=== PATIENT | male | born 1955 | race Two or more races ===

== ENCOUNTER → 2023-06-07 | Outpatient (CLI) | payer OTHER ==
[2023-06-07 10:09] LABS: Urine WBC None Seen /hpf (0 - 3)
[2023-06-07 10:22] LABS: Basophils # (auto) 0 10 ^3/uL (0-0.2); Basophils % (auto) 0.7 % (0.0-2.0); Eosinophils # (auto) 0.3 10 ^3/uL (0-0.8); Eosinophils % (auto) 4.6 % (0.0-7.0); Hematocrit 47.8 % (41.0-53.0); Hemoglobin 15.9 g/dL (13.5-17.5); Lymphocytes # (auto) 2.1 10 ^3/uL (0.4-5.4); Lymphocytes % (auto) 38.1 % (10.0-50.0); Mean Corpuscular Hemoglobin 31.7 pg (28.0-32.0); Mean Corpuscular Hgb Conc. 33.3 g/dL (32.0-36.0); Mean Corpuscular Volume 95.3 fL (80.0-100.0); Monocytes # (auto) 0.5 10 ^3/uL (0-1.3); Monocytes % (auto) 8.6 % (0.0-12.0); Neutrophils # (auto) 2.6 10 ^3/uL (1.6-8.6); Nucleated Red Blood Cells % 0.1 %; Red Blood Cells 5.01 10^6/uL (4.5-5.90); Red Cell Distribution Width 13.6 % (11.8-14.3); White Blood Cell 5.4 10^3/uL (4.4-10.8)
[2023-06-07 10:43] LABS: Prostate Specific Antigen 2.29 ng/mL (0.0-4.0)
[2023-06-07 10:47] LABS: Free T4 (Free Thyroxine) 1.12 ng/dL (0.89-1.76)
[2023-06-07 10:48] LABS: Alanine Aminotransferase 15 U/L (7-40); Albumin 4.7 g/dL (3.2-4.8); Alkaline Phosphatase 83 U/L (46-116); Anion Gap 6 (5-15); Aspartate Aminotransferase 16 U/L (13-40); BUN/Creatinine Ratio 13.7 (10.0-20.0); Blood Urea Nitrogen 14 mg/dL (9-23); Carbon Dioxide 29 mmol/L (20-30); Chloride 105 mmol/L (98-107); Cholesterol 176 mg/dL (< 200); Glucose 95 mg/dL (74-106); HDL Cholesterol 69 mg/dL (40-59); LDL Cholesterol 95 mg/dL (< 100); Potassium 4.6 mmol/L (3.5-5.1); Sodium 140 mmol/L (136-145); Triglycerides 72 mg/dL (< 150)
[2023-06-07 10:49] LABS: Bilirubin, Total 0.7 mg/dL (0.2-1.0); Total Protein 7.1 g/dL (5.7-8.2)
[2023-06-07 11:49] LABS: Urine Bacteria NONE SEEN /hpf (None Seen); Urine Blood Negative /uL (Negative); Urine Clarity Clear (Clear); Urine Protein, UAD Negative (Negative); Urine Specific Gravity 1.008 (1.001-1.035); Urine Urobilinogen Normal (Negative); Urine pH 6.5 (5.0-8.0)
[2023-06-07 11:50] LABS: Urine Color Yellow (Yellow)
== END | disposition home or self-care (01) ==
LOC: LAB 09:55
DX: Z00.00 Encounter for general adult medical examination without abnormal findings (principal); I10 Essential (primary) hypertension
CPT/HCPCS: 36415; 80053; 80061; 81001; 84153; 84439; 84443; 85025

== ENCOUNTER 2024-04-22 07:18 | Day surgery (SDC) | payer OTHER ==
[2024-04-17 09:39] LABS: Basophils # (auto) 0.1 10 ^3/uL (0-0.2); Basophils % (auto) 1.3 % (0.0-2.0); Eosinophils # (auto) 0.1 10 ^3/uL (0-0.8); Eosinophils % (auto) 2.7 % (0.0-7.0); Hematocrit 48.2 % (41.0-53.0); Hemoglobin 16.2 g/dL (13.5-17.5); Lymphocytes # (auto) 1.9 10 ^3/uL (0.4-5.4); Lymphocytes % (auto) 37.6 % (10.0-50.0); Mean Corpuscular Hemoglobin 32.5 pg (28.0-32.0); Mean Corpuscular Hgb Conc. 33.5 g/dL (32.0-36.0); Mean Corpuscular Volume 96.9 fL (80.0-100.0); Monocytes # (auto) 0.4 10 ^3/uL (0-1.3); Neutrophils # (auto) 2.6 10 ^3/uL (1.6-8.6); Neutrophils % (auto) 51.4 % (37.0-80.0); Platelet Count (auto) 229 10^3/uL (140-450); Red Blood Cells 4.98 10^6/uL (4.5-5.90); Red Cell Distribution Width 13.5 % (11.8-14.3); White Blood Cell 5.1 10^3/uL (4.4-10.8)
[2024-04-17 09:56] LABS: INR 0.97 (0.9-1.15); Partial Thromboplastin Time 26.9 SEC (24.5-34.5); Prothrombin Time 10.3 sec (9.3-11.8)
[2024-04-17 10:15] LABS: Alanine Aminotransferase 17 U/L (7-40); Alkaline Phosphatase 81 U/L (46-116); Anion Gap 7 (5-15); BUN/Creatinine Ratio 14.7 (10.0-20.0); Blood Urea Nitrogen 15 mg/dL (9-23); Carbon Dioxide 28 mmol/L (20-31); Chloride 105 mmol/L (98-107); Glucose 94 mg/dL (74-106); Potassium 4.5 mmol/L (3.5-5.1); Sodium 140 mmol/L (136-145)
[2024-04-17 10:17] LABS: Aspartate Aminotransferase 17 U/L (13-40)
[2024-04-17 10:18] LABS: Albumin 4.8 g/dL (3.2-4.8); Bilirubin, Total 0.7 mg/dL (0.2-1.0); Calcium 10.4 mg/dL (8.7-10.4)
[~2024-04-22] VITALS: Ht 172.7 cm; Wt 65.8 kg
[2024-04-22] MEDS: MIDAZOLAM HCL 5 MG/ML-1ML VIAL ONE (08:50)
[2024-04-22] MEDS: fentaNYL CITRATE 100 MCG/2 ML VL ONE (08:50)
[2024-04-22 09:09] VITALS: PULSE 66; RESP 11; TEMP 98.7; O2SAT 98
[2024-04-22 09:47] VITALS: BP 123/78; PULSE 62; RESP 17; O2SAT 95
[2024-04-22] MEDS ORDERED: NALOXONE HCL 0.4 MG/ML VIAL ONE (11:00)
[2024-04-22] MEDS ORDERED: SODIUM CHLORIDE LOCK 10 ML ONE (11:00)
[2024-04-22] MEDS ORDERED: FLUMAZENIL 0.1 MG/ML INJ 10ML MDV IV ONE (11:00)
--- NOTE | 2024-05-06 08:26 | DVHNC2 ---
Procedure - DATE OF PROCEDURE: APRIL 22, 2024 SURGEON: CATHY LAU MD REFERRING PROVIDER: Claudy CAZARES PROCEDURE PERFORMED: 1. COLONOSCOPY WITH COLD SNARE POLYPECTOMY WITH MODERATE SEDATION PRE-PROCEDURE DIAGNOSIS: 1. COLON CANCER SCREENING POSTPROCEDURE DIAGNOSIS: 1. TRANSVERSE COLON POLYP 2. 2+ INTERNAL HEMORRHOIDS 3. SMALL EXTERNAL HEMORRHOIDS INDICATIONS FOR PROCEDURE: The patient is a 68-year-old male who presents for outpatient colonoscopy for screening. He has of average risk DETAILS OF THE PROCEDURE: Informed consent was obtained after risks, benefits, and alternatives, were discussed at length with the patient. The patient gave consent to the procedure as well as the medication used for sedation. The patient was placed in the left lateral decubitus position. Digital rectal exam showed internal and external hemorrhoids. An Olympus variable torsion pediatric colonoscope was inserted into the rectum and advanced to the cecum. The cecum was identified by the ileocecal valve and the appendiceal orifice. The scope was then withdrawn. The prep was good with little amounts of liquid stool. There were no large polyps, masses, strictures, diverticula, or arteriovenous malformation seen. The patient had one transverse colon polyp removed completely with cold snare polypectomy. More than 6 minutes of withdrawal time was noted. Retroflexion showed 2+ internal hemorrhoids. The patient tolerated the procedure well. BRISTOL BOWEL PREP SCORE: 9 COLONOSCOPY START TIME: 8:53 A.M. CECUM TIME: 8:59 A.M. COLONOSCOPY END TIME: 9:06 A.M. IMPRESSION: 1. ONE SMALL COLON POLYP 2. 2+ INTERNAL AND SMALL EXTERNAL HEMORRHOIDS RECOMMENDATIONS: 1. FOLLOW-UP WITH PROCEDURE AND PATHOLOGY RESULTS 2. REPEAT COLONOSCOPY IN 5 YEARS PENDING PATHOLOGY UNLESS OTHERWISE INDICATED BY SYMPTOMS OR FAMILY HISTORY OR LABORATORY FINDINGS 3. HIGH-FIBER DIET 4. FOLLOW UP WITH PRIMARY CARE PHYSICIAN 5. MEDICAL MANAGEMENT AND/OR HEMORRHOID BANDING FOR INTERNAL HEMORRHOIDS I WOULD LIKE TO THANK DR[facility] CLAUDY HER [facility] FOR THIS REFERRAL CATHY LAU MD May 06, 2024 08:26
== END 2024-04-22 10:05 | disposition home or self-care (01) ==
LOC: GI 07:18
PROVIDERS: ATTEND Specialist
DX: Z12.11 Encounter for screening for malignant neoplasm of colon (principal); D12.3 Benign neoplasm of transverse colon; K64.1 Second degree hemorrhoids; K64.4 Residual hemorrhoidal skin tags
CPT/HCPCS: 36415; 45385; 80053; 85025; 85610; 85730; 88305; J2250; J3010; 99152

== ENCOUNTER → 2024-05-10 | Day surgery (SDC) | payer OTHER, MEDICAID ==
[2024-05-08 11:12] LABS: Urine Bacteria None Seen /hpf (None Seen)
[2024-05-08 11:48] LABS: Basophils # (auto) 0 10 ^3/uL (0-0.2); Basophils % (auto) 0.6 % (0.0-2.0); Eosinophils # (auto) 0.1 10 ^3/uL (0-0.8); Hematocrit 48.9 % (41.0-53.0); Hemoglobin 16.5 g/dL (13.5-17.5); Lymphocytes # (auto) 1.5 10 ^3/uL (0.4-5.4); Lymphocytes % (auto) 31.9 % (10.0-50.0); Mean Corpuscular Hemoglobin 32.5 pg (28.0-32.0); Mean Corpuscular Hgb Conc. 33.8 g/dL (32.0-36.0); Mean Corpuscular Volume 96.2 fL (80.0-100.0); Monocytes # (auto) 0.3 10 ^3/uL (0-1.3); Monocytes % (auto) 6.6 % (0.0-12.0); Neutrophils # (auto) 2.7 10 ^3/uL (1.6-8.6); Neutrophils % (auto) 58.9 % (37.0-80.0); Platelet Count (auto) 235 10^3/uL (140-450); Red Blood Cells 5.08 10^6/uL (4.5-5.90); Red Cell Distribution Width 13.2 % (11.8-14.3); White Blood Cell 4.6 10^3/uL (4.4-10.8)
[2024-05-08 12:09] LABS: INR 0.93 (0.9-1.15); Partial Thromboplastin Time 27.1 SEC (24.5-34.5); Prothrombin Time 9.9 sec (9.3-11.8)
[2024-05-08 12:14] LABS: Urine Blood Negative /uL (Negative); Urine Clarity Clear (Clear); Urine Color Light-Yellow (Yellow); Urine Protein, UAD Negative (Negative); Urine Specific Gravity 1.011 (1.001-1.035); Urine Squamous Epithelial Cell None Seen /hpf (<5); Urine Urobilinogen Normal (Negative); Urine pH 6.5 (5.0-9.0)
[2024-05-08 12:21] LABS: Alanine Aminotransferase 17 U/L (7-40); Alkaline Phosphatase 84 U/L (46-116); Anion Gap 6 (5-15); Aspartate Aminotransferase 14 U/L (13-40); BUN/Creatinine Ratio 18.2 (10.0-20.0); Bilirubin, Total 0.5 mg/dL (0.2-1.0); Blood Urea Nitrogen 18 mg/dL (9-23); Calcium 10.4 mg/dL (8.7-10.4); Carbon Dioxide 29 mmol/L (20-31); Chloride 105 mmol/L (98-107); Glucose 96 mg/dL (74-106); Potassium 4.5 mmol/L (3.5-5.1); Sodium 140 mmol/L (136-145); Total Protein 7.5 g/dL (5.7-8.2)
[2024-05-08 12:26] LABS: Albumin 5.1 g/dL (3.2-4.8)
[~2024-05-10] VITALS: Ht 172.7 cm; Wt 63.5 kg
[~2024-05-10] MED LIST: DexAMETHasone SOD PHOS 10MG/1ML VIAL INJ ONE; KETOROLAC TROMETH 30 MG/ML 1ML VIAL ONE; LIDOCAINE W/ EPINEPHRINE 1% 20ML VIAL ONE; MEPERIDINE HCL (25 MG/ML) 1ML VIAL ONE; MIDAZOLAM HCL 2MG/2ML 2ml VIAL (1mg/ml) IV PRN; MIDAZOLAM HCL 2MG/2ML 2ml VIAL (1mg/ml) ONE; MORPHINE SULFATE 4 MG/ML SYR/VIAL IV PRN; ONDANSETRON HCL 4 MG/2 ML VIAL IV ONE; ONDANSETRON HCL 4 MG/2 ML VIAL ONE; PHENYLEPHRINE HCL 10 MG/ML VL IV ONE; ceFAZolin 2 GM/D5W100ml 100 ML IV ONE; ePHEDrine SULFATE 50 MG/ML AMP IV PRN; fentaNYL CITRATE 100 MCG/2 ML VL ONE; hydrALAZINE HCL 20 MG/ML VL IV PRN
[2024-05-10] MEDS: BUPIVACAINE 0.5% MPF INJ 30ML SDV IJ ONE (08:49)
--- NOTE | 2024-05-10 09:19 | DVHOP ---
DATE OF SURGERY: 05/10/2024 PREOPERATIVE DIAGNOSIS: Right inguinal hernia. POSTOPERATIVE DIAGNOSIS: Right inguinal hernia. SURGEON: Shivam Oreilly MD PICKLER HELPER: Azeem Nam. ANESTHESIA: General. ANESTHESIOLOGIST: Dr. Pyle. PROCEDURE: Repair of right inguinal hernia. DESCRIPTION OF PROCEDURE: Under adequate anesthesia, with the patient's skin prepped and draped and infiltrated with 0.25% Marcaine with 0.5% Xylocaine mixture an incision was made over the visible palpable bulge of the right groin. Incision was deepened with electrocautery and the adipose tissue divided. The Anitha's fascia divided down onto the fibers of the external oblique aponeurosis. The ilioinguinal nerve was identified, reflected laterally and protected. The cord structures were encircled with a Sri drain and reflected laterally. The sac was divided after being from cremasteric fibers and digitally explored. It was traced into the internal ring, where it was twisted on itself, doubly ligated and amputated. The excess peritoneal tissue submitted for histopathologic examination. The patient's hernia floor was repaired using nonabsorbable sutures through conjoint tendon and reflecting portion of Poupart's ligament. Following the repair of the floor, the testicle was placed on tension into its scrotal compartment. The ilioinguinal nerve was re-placed back into its normal anatomical position. Wound was irrigated, hemostasis meticulously accomplished, found to be complete. Subcutaneous tissues and skin approximated using Monocryl sutures, Dermabond glue and Steri-Strips. The patient remained stable throughout the procedure, left the operating room following an accurate needle and sponge count. Shivam Oreilly MD PF/BRENDA TID: [id number] RECEIPT: [id number]
[2024-05-10 09:20] VITALS: PULSE 72; RESP 12; TEMP 97.9; O2SAT 98
[2024-05-10 09:25] VITALS: PULSE 67; RESP 13; O2SAT 98
[2024-05-10 09:30] VITALS: PULSE 68; PULSE 73; RESP 15; RESP 17; O2SAT 100; O2SAT 98
[2024-05-10] MEDS: HYDROmorphone HCL 2 MG/ML VL/or syr IV PRN (10:10)
[2024-05-10 10:35] VITALS: BP 133/80; PULSE 68; RESP 12; O2SAT 97
== END | disposition home or self-care (01) ==
LOC: SUR 06:56
PROVIDERS: ATTEND Surgery
DX: K40.90 Unilateral inguinal hernia, without obstruction or gangrene, not specified as recurrent (principal); K44.9 Diaphragmatic hernia without obstruction or gangrene
CPT/HCPCS: 36415; 49505; 80053; 81001; 85025; 85610; 85730; 86850; 86900; 86901; 87086; J1100; J1171; J1885; J2175; J2250; J2371; J2405; J3010; J3490; 88302

== ENCOUNTER → 2024-06-06 | Outpatient (CLI) | payer OTHER ==
[2024-06-06 13:38] LABS: Basophils # (auto) 0 10 ^3/uL (0-0.2); Basophils % (auto) 0.7 % (0.0-2.0); Eosinophils # (auto) 0.2 10 ^3/uL (0-0.8); Eosinophils % (auto) 3.1 % (0.0-7.0); Hematocrit 47.7 % (41.0-53.0); Hemoglobin 15.7 g/dL (13.5-17.5); Lymphocytes # (auto) 1.6 10 ^3/uL (0.4-5.4); Lymphocytes % (auto) 31.5 % (10.0-50.0); Mean Corpuscular Hemoglobin 31.7 pg (28.0-32.0); Mean Corpuscular Hgb Conc. 32.9 g/dL (32.0-36.0); Mean Corpuscular Volume 96.4 fL (80.0-100.0); Monocytes # (auto) 0.4 10 ^3/uL (0-1.3); Monocytes % (auto) 8.2 % (0.0-12.0); Neutrophils # (auto) 2.9 10 ^3/uL (1.6-8.6); Neutrophils % (auto) 56.5 % (37.0-80.0); Nucleated Red Blood Cells % 0.1 %; Platelet Count (auto) 225 10^3/uL (140-450); Red Blood Cells 4.94 10^6/uL (4.5-5.90); Red Cell Distribution Width 13.3 % (11.8-14.3); White Blood Cell 5.2 10^3/uL (4.4-10.8)
[2024-06-06 14:24] LABS: Alanine Aminotransferase 31 U/L (7-40); Albumin 4.6 g/dL (3.2-4.8); Alkaline Phosphatase 77 U/L (46-116); Anion Gap 5 (5-15); Aspartate Aminotransferase 19 U/L (13-40); BUN/Creatinine Ratio 20.9 (10.0-20.0); Blood Urea Nitrogen 19 mg/dL (9-23); Carbon Dioxide 28 mmol/L (20-31); Chloride 104 mmol/L (98-107); Cholesterol 172 mg/dL (< 200); Glucose 93 mg/dL (74-106); LDL Cholesterol 94 mg/dL (< 100); Potassium 4.9 mmol/L (3.5-5.1); Sodium 137 mmol/L (136-145); Total Protein 6.9 g/dL (5.7-8.2); Triglycerides 100 mg/dL (< 150)
[2024-06-06 14:25] LABS: Bilirubin, Total 0.5 mg/dL (0.2-1.0)
[2024-06-06 14:31] LABS: HDL Cholesterol 65 mg/dL (40-59)
== END | disposition home or self-care (01) ==
LOC: LAB 13:20
PROVIDERS: ATTEND Nurse Practitioner Family
DX: E78.5 Hyperlipidemia, unspecified (principal); R35.1 Nocturia; K40.90 Unilateral inguinal hernia, without obstruction or gangrene, not specified as recurrent; Z00.01 Encounter for general adult medical examination with abnormal findings
CPT/HCPCS: 36415; 80053; 80061; 84153; 84443; 85025